=== PATIENT | female | born 1990 | race Caucasian/White ===

== ENCOUNTER 2016-05-18 12:28 | Emergency (ER) | payer OTHER, MEDICAID ==
--- NOTE | 2016-05-18 12:39 | ER Document Report ---
ED Medical Screen (RME) - General Stated Complaint: UPPER RIGHT ABDOMINAL PAIN Mode of Arrival: Ambulatory Information source: Patient Notes: Patient complains of right upper quadrant abdominal pain that started today. Patient reports some nausea, no vomiting. No fever. Patient does complain some dizziness. hx: Palpitations, arrhythmia, asthma, anemia I have greeted and performed a rapid initial assessment of this patient. A comprehensive ED assessment and evaluation of the patient, analysis of test results and completion of the medical decision making process will be conducted by additional ED providers. TRAVEL OUTSIDE OF THE [place] IN LAST 30 DAYS: No - Related Data Allergies/Adverse Reactions: sertraline [From Zoloft] Allergy (Verified 05/18/16 12:38) Past Medical History Pulmonary Medical History: Reports: Hx Asthma Past Surgical History: Reports: Hx Section Physical Exam - Abdominal Tenderness: Tender - Right upper quadrant
[2016-05-18 13:13] LABS: ABSOLUTE LYMPHOCYTES (AUTO) 1.6 10^3/uL (0.5-4.7); ABSOLUTE MONOCYTES (AUTO) 0.5 10^3/uL (0.1-1.4); ABSOLUTE NEUT (AUTO) 3.1 10^3/uL (1.7-8.2); BASOPHILS % (AUTO) 0.2 % (0-2); EOSINOPHILS % (AUTO) 0.5 % (0-6); HEMATOCRIT 34.2 % (36.0-47.0); HEMOGLOBIN 11.2 g/dL (12.0-15.5); HGB HCT DIFFERENCE -0.6; LYMPHOCYTES % (AUTO) 30.7 % (13-45); MEAN CORPUSCULAR HEMOGLOBIN 26.9 pg (27.0-33.4); MEAN CORPUSCULAR HGB CONC 32.8 g/dL (32.0-36.0); MEAN CORPUSCULAR VOLUME 82 fl (80-97); MONOCYTES % (AUTO) 9.5 % (3-13); RED BLOOD COUNT 4.16 10^6/uL (3.72-5.28); RED CELL DISTRIBUTION WIDTH 14.4 % (11.5-14.0); SEGMENTED NEUTROPHILS % (AUTO) 59.1 % (42-78); WHITE BLOOD COUNT 5.3 10^3/uL (4.0-10.5)
[2016-05-18 13:39] LABS: ALANINE AMINOTRANSFERASE 30 U/L (9-52); ALBUMIN 4.1 g/dL (3.5-5.0); ALKALINE PHOSPHATASE 56 U/L (38-126); ANION GAP 10 (5-19); ASPARTATE AMINO TRANSFERASE 24 U/L (14-36); BILIRUBIN,TOTAL 0.5 mg/dL (0.2-1.3); BLOOD UREA NITROGEN 18 mg/dL (7-20); CALCIUM 9.6 mg/dL (8.4-10.2); CARBON DIOXIDE 28 mmol/L (22-30); CHLORIDE 103 mmol/L (98-107); CREATININE RESULT 0.64 mg/dL (0.52-1.25); GLUCOSE 81 mg/dL (75-110); POTASSIUM 4.2 mmol/L (3.6-5.0); TOTAL PROTEIN 7.3 g/dL (6.3-8.2)
[2016-05-18 13:47] LABS: APPEARANCE,URINE CLEAR; BILIRUBIN,URINE NEGATIVE (NEGATIVE); GLUCOSE, URINE NEGATIVE (NEGATIVE); KETONES,URINE NEGATIVE (NEGATIVE); LEUKOCYTE ESTERASE,URINE NEGATIVE (NEGATIVE); NITRITE,URINE NEGATIVE (NEGATIVE); PROTEIN,URINE NEGATIVE (NEGATIVE); URINE SPECIFIC GRAVITY 1.021; UROBILINOGEN,URINE NEGATIVE mg/dL (<2.0)
--- NOTE | 2016-05-18 17:19 | ER Document Report ---
ED GI/ - General Chief Complaint: Abdominal Pain Stated Complaint: UPPER RIGHT ABDOMINAL PAIN Mode of Arrival: Ambulatory Information source: Patient Notes: This is a 25-year-old female who presents for evaluation of right-sided abdominal pain. She states that she awoke today with abdominal discomfort which was described as a pressure on the right side of her abdomen. This was prior to eating or drinking anything. She did eat a couple of bites of a breakfast sandwich at about 10:30 which she tolerated and has not vomited. She was seen by her primary doctor [facility] and was told that she may have gallbladder problems and was recommended that she come to the ER today for further evaluation. She has had normal bowel movements and has had no dysuria or hematuria or flank pain. No fevers chills or systemic symptoms. Currently she is not having any active pain. TRAVEL OUTSIDE OF THE [place] IN LAST 30 DAYS: No - Related Data Allergies/Adverse Reactions: sertraline [From Zoloft] Allergy (Verified 05/18/16 12:38) Past Medical History - General Information source: Patient - Social History Smoking Status: Former Smoker Chew tobacco use (# tins/day): No Frequency of alcohol use: None Drug Abuse: None Family History: None, Reviewed & Not Pertinent Patient has suicidal ideation: No Patient has homicidal ideation: No - Past Medical History Cardiac Medical History: Reports: Other - palpititations Pulmonary Medical History: Reports: Hx Asthma Renal/ Medical History: Denies: Hx Peritoneal Dialysis Past Surgical History: Reports: Hx Section Review of Systems - Review of Systems Notes: REVIEW OF SYSTEMS: CONSTITUTIONAL : Denies fever, chills, or sweats. Denies recent illness. EENT: Denies eye, ear, throat, or mouth pain or symptoms. Denies nasal or sinus congestion. CARDIOVASCULAR: Denies chest pain. RESPIRATORY: Denies cough, cold, or chest congestion. Denies shortness of breath, difficulty breathing, or wheezing. GASTROINTESTINAL: As per history of present illness GENITOURINARY: Denies difficulty urinating, painful urination, burning, frequency, or blood in urine. FEMALE GENITOURINARY: Denies vaginal bleeding, abnormal or irregular periods. LMP: 05/07/16 MUSCULOSKELETAL: Denies neck or back pain or joint pain or swelling. SKIN: Denies rash or skin lesions. HEMATOLOGIC : Denies easy bruising or bleeding. LYMPHATIC: Denies swollen, enlarged glands. NEUROLOGICAL: Denies altered mental status or loss of consciousness. Denies headache. Denies weakness or paralysis or loss of use of either side. Denies problems with gait or speech. Denies sensory or motor loss. PSYCHIATRIC: Denies anxiety or stress or depression. ALL OTHER SYSTEMS REVIEWED AND NEGATIVE. Physical Exam - Vital signs Vitals: Temp Pulse Resp BP Pulse Ox 98.4 F 85 18 113/72 100 05/18/16 12:38 05/18/16 12:38 05/18/16 12:38 05/18/16 12:38 05/18/16 12:38 - Notes Notes: PHYSICAL EXAMINATION: GENERAL: Well-appearing, very thin adult female in no acute distress. Pleasant and conversant HEAD: Atraumatic, normocephalic. EYES: Pupils equal round and reactive to light, extraocular movements intact, sclera anicteric, conjunctiva are normal. ENT: nares patent, oropharynx clear without exudates. Moist mucous membranes. NECK: Normal range of motion, supple without lymphadenopathy LUNGS: Breath sounds clear to auscultation bilaterally and equal. No wheezes rales or rhonchi. HEART: Regular rate and rhythm without murmurs ABDOMEN: Soft, normoactive bowel sounds. No guarding, no rebound. No masses appreciated. There is tenderness to palpation on the right side of the abdomen with no guarding. Negative Olson's. EXTREMITIES: Normal range of motion, no pitting or edema. No cyanosis. NEUROLOGICAL: Cranial nerves grossly intact. Normal speech, normal gait. Normal sensory, motor, and reflex exams. PSYCH: Normal mood, normal affect. SKIN: Warm, Dry, normal turgor, no rashes or lesions noted. Course - Re-evaluation Re-evalutation: 05/18/16 17:19 The patient does not present with symptoms that are concerning for biliary colic , she has had no postprandial abdominal pain or vomiting. However she is tender in her right lower quadrant. We will obtain a CT with IV and oral contrast to assess the appendix and other intra-abdominal organs. 05/18/16 19:42 Patient was reassessed. She is laying comfortably in the bed. She has had no vomiting and she is comfortable. She has finished her oral contrast and she'll be going for her CT shortly 05/18/16 21:16 I discussed with patient the results of her CAT scan. Her appendix and her gallbladder are unremarkable on the CT. She does however have a cystic area noted in the right adnexal fossa. This will need further evaluation with an ultrasound tonight. On repeat abdominal exam her abdomen is soft nondistended and she has normal bowel sounds. She does have tenderness to palpation in the right lower quadrant but no peritoneal signs. 05/18/16 22:53 Pelvic ultrasound reviewed. There is a right ovarian cyst but no evidence of torsion. Patient remains comfortable and hemodynamically stable with a nonsurgical abdomen. We'll treat symptomatically with pain control and patient will follow up with her primary care physician. Strict return precautions discussed including fevers, increased pain, persistent vomiting or other worsening symptoms. She is very comfortable with the plan. - Vital Signs Vital signs: Temp Pulse Resp BP Pulse Ox 98.4 F 85 18 113/72 100 05/18/16 12:38 05/18/16 12:38 05/18/16 12:38 05/18/16 12:38 05/18/16 12:38 - Laboratory Result Diagrams: 05/18/16 12:45 05/18/16 12:45 Laboratory results interpreted by me: 05/18/16 12:45 Hgb 11.2 L Hct 34.2 L MCH 26.9 L RDW 14.4 H - Diagnostic Test Radiology reviewed: Image reviewed, Reports reviewed Discharge - Discharge Clinical Impression: Right ovarian cyst, Abdominal pain in female patient Condition: Good Disposition: HOME, SELF-CARE Additional Instructions: ABDOMINAL PAIN: There are many causes of abdominal pain. Pain can mean a serious problem requiring surgery (such as appendicitis). It can also be an innocent problem that goes away on its own (such as a viral infection). Often, time must pass to determine the cause of pain. The physician does not feel that hospitalization is necessary, at present. Things may change within the next 24 hours. Call the doctor or come back for re- examination if any problems occur, such as: (1) Pain that becomes more severe, steady, or becomes concentrated in one specific area. Also, pain that is more severe with movement or coughing. (2) Vomiting that persists or becomes more frequent. (3) Blood in the vomitus, urine, or bowel movements. Blood in the stool may have a tarry or black appearance. (4) Shaking chills or fever greater than 100 degrees F. (5) The abdomen becomes more distended or swollen. (6) Bowel movements cease. (7) Failure to improve as expected. Ovarian Cyst Your examination shows the presence of an ovarian cyst. This is a ball of fluid attached to the ovary. Ovarian cysts in women of child-bearing age are usually innocent. However, the cyst may cause pain when it grows or bursts. An innocent ovarian cyst will usually go away by itself. When the cyst becomes painful, you should rest. Pain medication may be required. Some women find a hot water bottle soothing. The pain usually resolves within one or two days. After menopause, an ovarian cyst may mean a tumor, and requires more aggressive evaluation -- usually surgery is recommended to remove or biopsy the cyst. A very large cyst requires evaluation at any age. Most cysts (even the innocent ones) require follow-up examination. Call the doctor or return at any time if the pain increases significantly, if you become faint, or if you experience vaginal bleeding. ORAL NARCOTIC MEDICATION: You have been given a prescription for pain control. This medication is a narcotic. It's best taken with food, as nausea can result if taken on an empty stomach. Don't operate machinery or drive within six hours of taking this medication. Do not combine this medicine with alcohol, or with any medication which can cause sedation (such as cold tablets or sleeping pills) unless you get permission from the physician. Narcotics tend to cause constipation. If possible, drink plenty of fluids and eat a diet high in fiber and fruits. Please be aware that prescription narcotics also have the potential for abuse. People become addicted to these medications because of the general sense of wellbeing that they induce. This feeling along with a significant reduction in tension, anxiety, and aggression provides a stimulating seductive quality to these drugs. Once your pain is under control, we encourage you to discard your unused narcotics. FOLLOW-UP CARE: If you have been referred to a physician for follow-up care, call the physician s office for an appointment as you were instructed or within the next two days. If you experience worsening or a significant change in your symptoms, notify the physician immediately or return to the Emergency Department at any time for re-evaluation. FOLLOW-UP CARE: You should return for re-evaluation in 12 hours. This follow-up visit is important. If you are unable to return, or feel that the return visit is unnecessary, please call us. Prescriptions: Hydrocodone/Acetaminophen [Lortab 5-325 mg Tablet] 1 each PO Q4H PRN #12 tablet PRN Reason: Naproxen 500 mg PO BID #20 tablet Referrals: UNRULY FLETCHER NP [Primary Care Provider] - Follow up in 3-5 days
[2016-05-18] MEDS ORDERED: NORMAL SALINE 1000 ML 1,000 ML IV ONE (17:20)
[2016-05-18 23:19] VITALS: BP 100/59
== END 2016-05-18 23:24 | disposition home or self-care (01) ==
LOC: ER 12:28
DX: N83.201 Unspecified ovarian cyst, right side (principal); R10.11 Right upper quadrant pain; Z87.891 Personal history of nicotine dependence
CPT/HCPCS: 99284; 96360; 36415; 83690; 84703; 85025; 80053; 81001; 76830; 93976; 74177; J7030